=== PATIENT | female | born 1960 | race African-American/Black ===

== ENCOUNTER 2020-05-27 03:12 | Emergency (ER) | payer OTHER ==
[~2020-05-27] VITALS: Ht 162.6 cm; Wt 57.0 kg
[2020-05-27 04:34] LABS: HEMOGLOBIN. 11.7 g/dL (12.0-16.0); MEAN CORPUSCULAR HEMOGLOBIN 27.6 pg (28.0-32.0); MEAN CORPUSCULAR VOLUME 85.2 fL (81.0-99.0); MEAN PLATELET VOLUME 8.7 fl (7.4-10.4); PLATELET 271 x1000/uL (130-400); RED BLOOD CELL COUNT 4.23 mill/uL (4.2-5.4); RED CELL DISTRIBUTION WIDTH 14.6 % (11.6-14.6)
[2020-05-27 05:02] LABS: CHLORIDE 109 mEq/L (98-107)
[2020-05-27 05:51] LABS: PLATELET ESTIMATE NORMAL
[2020-05-27 05:57] VITALS: BP 131/71
== END 2020-05-27 05:57 | disposition home or self-care (01) ==
LOC: ER 03:17
DX: J44.1 Chronic obstructive pulmonary disease with (acute) exacerbation (principal)
CPT/HCPCS: 36415; 71045; 80053; 83880; 84484; 85025; 93005; 99285